=== PATIENT | female | born 1995 | race African-American/Black ===

== ENCOUNTER 2017-03-20 08:00 | Outpatient (CLI) | payer MEDICAID | END 2017-03-20 23:59 | disposition home or self-care (01) | LOC: LAB.R 08:00 | PROVIDERS: ATTEND Obstetrics & Gynecology | DX: Z36 Encounter for antenatal screening of mother (principal) | CPT/HCPCS: 87491; 87591 ==

== ENCOUNTER 2017-03-22 14:17 | Outpatient (CLI) | payer MEDICAID ==
[2017-03-22 14:51] LABS: BILIRUBIN,URINE NEGATIVE (NEGATIVE); PH,URINE 6.5 PH (5.0-7.5)
[2017-03-22 14:56] LABS: BASOPHILS % (AUTO) 0.4 %; EOSINOPHILS # (AUTO) 0.1 10^3/uL (0.0-0.7); EOSINOPHILS % (AUTO) 0.6 %; HCT - HEMATOCRIT 38.5 % (37.0-47.0); HGB - HEMOGLOBIN 13.2 g/dL (12.0-16.0); LYMPHOCYTES # (AUTO) 1.6 10^3/uL (1.5-3.5); LYMPHOCYTES % (AUTO) 16.5 %; MEAN CORPUSCULAR HEMOGLOBIN 27.9 pg (27.0-31.0); MEAN CORPUSCULAR HGB CONC 34.3 g/dL (32.0-36.0); MEAN CORPUSCULAR VOLUME 81.5 fL (81.0-99.0); MEAN PLATELET VOLUME 10.2 fL (7.9-10.8); MONOCYTES # (AUTO) 0.4 10^3/uL (0.0-1.0); MONOCYTES % (AUTO) 4.2 %; NEUTROPHILS # (AUTO) 7.7 10^3/uL (1.5-6.6); NEUTROPHILS % (AUTO) 78.3 %; RED BLOOD COUNT 4.73 10^6/uL (4.20-5.40); RED CELL DISTRIBUTION WIDTH 14.7 % (12.0-15.0); UNCORRECTED WHITE BLOOD COUNT 9.8 x10^3/uL; WHITE BLOOD COUNT 9.8 x10^3/uL (4.8-10.8)
== END 2017-03-22 14:18 | disposition home or self-care (01) ==
LOC: LAB 14:17
PROVIDERS: ATTEND Obstetrics & Gynecology
DX: Z36 Encounter for antenatal screening of mother (principal)
CPT/HCPCS: 36415; 81001; 85025; 86762; 86780; 86850; 86900; 86901; 87340; 87389

== ENCOUNTER 2017-05-12 07:43 | Outpatient (CLI) | payer MEDICAID | END 2017-05-12 07:44 | disposition home or self-care (01) | LOC: DI 07:43 | PROVIDERS: ATTEND Obstetrics & Gynecology | DX: Z53.9 Procedure and treatment not carried out, unspecified reason (principal) ==

== ENCOUNTER 2017-05-19 07:54 | Outpatient (CLI) | payer MEDICAID ==
--- NOTE | 2017-05-19 11:34 | Ultrasound Report ---
OB ULTRASOUND: 05/19/2017 CLINICAL INDICATION: anatomy. TECHNIQUE: Real-time scanning was performed with representative personal service static images obtained. LAST MENSTRUAL PERIOD 12/22/2016 Clinical Age 21 weeks 1 day US Age 21 weeks 1 day EFW Hadlock 410 g EFW% Hadlock --- Heart Rate 140 bpm EDC 09/28/2017 US EDC 09/28/2017 BPD [place] 21 weeks 1 day; Mean mm 50.2 HC [place] 20 weeks 6 days; Mean mm 185.8 AC [place] 21 weeks 3 days; Mean mm 163.5 FL [place]lock 21 weeks 1 day; Mean mm 35.3 Presentation variable Placental Location anterior Cervical Length 4.4 cm Amniotic Fluid 5 cm FINDINGS: There is a single viable intrauterine gestation, in variable position. heart rate is 140 BPM. The placenta is anterior, with a left wrap and a succenturiate posterior lobe seen. There is no evidence of previa. Amniotic fluid volume is subjectively normal. By size, the fetus measures 21 weeks 1 day (21 weeks 2 days by LMP). The following anatomic structures were visualized and appear normal: The intracranial contents, including the ventricles and posterior fossa; the lips and orbits; the spine; the heart, including 4 chamber view and outflow tracts, and diaphragm; the abdominal contents, including the stomach, the bilateral kidneys, and urinary bladder, as well as a normal 3 vessel cord insertion; 4 limbs. No free fluid or adnexal lesion is appreciated. IMPRESSION: SINGLE VIABLE INTRAUTERINE GESTATION, WITH SIZE IN KEEPING WITH LMP DATING. NORMAL ANATOMIC SURVEY. ANTERIOR PLACENTA, WITH A LEFT WRAP AND A POSTERIOR SUCCENTURIATE LOBE. [facility]
== END 2017-05-19 07:55 | disposition home or self-care (01) ==
LOC: DI 07:54
PROVIDERS: ATTEND Obstetrics & Gynecology
DX: Z36 Encounter for antenatal screening of mother (principal); O43.192 Other malformation of placenta, second trimester; Z3A.17 17 weeks gestation of pregnancy
CPT/HCPCS: 76811

== ENCOUNTER 2017-05-21 23:24 | Emergency (ER) | payer MEDICAID ==
[2017-05-21 23:53] VITALS: BP 112/71
[2017-05-22] MEDS ORDERED: DEXAMETHASONE 10 MG/ML VIAL PO STA (01:21)
[2017-05-22] MEDS ORDERED: AZITHROMYCIN 250 MG TABLET PO STA (01:21)
[2017-05-22] MEDS ORDERED: AZITHROMYCIN 250 MG TABLET PO ONE (01:36)
[2017-05-22] MEDS ORDERED: DEXAMETHASONE 10 MG/ML VIAL ONE (01:36)
[2017-05-22] MEDS ORDERED: CLOTRIMAZOLE 1% CREAM 15 GM TUBE TOP STA (01:38)
[2017-05-22] MEDS ORDERED: MICONAZOLE 200 MG VAGINAL SUPP VG STA (02:54)
--- NOTE | 2017-05-22 03:12 | ED Physician Documentation ---
PD HPI FEMALE - Stated complaint Stated Complaint: WOUND ON THIGHS - Chief complaint Chief Complaint: Ext Problem - History obtained from History obtained from: Patient, Family - History of Present Illness Timing - onset: How many days ago (7) Timing - duration: Days (7) Timing - details: Gradual onset, Still present Associated symptoms: Vaginal pain Contributing factors: Similar symptoms before: Has not had sx before Recently seen: Clinic - Additional information Additional information: 21-year-old female is 22 weeks and she has developed some vaginal itching that has been severe and it is enough that she has developed bleeding from where she has been scratching. She did go and see the DISCHARGING MACHINE OPERATOR doctor at the clinic a test was negative for yeast.The patient states that she continues to have itching and the itching is severe enough that she has caused some bleeding. She indicates the area of itching maximally is in the crease of the perivaginal area. Review of Systems Constitutional: denies: Fever Respiratory: denies: Cough GI: denies: Abdominal Pain, Nausea, Vomiting : denies: Dysuria Skin: reports: Rash Musculoskeletal: denies: Neck pain, Back pain, Extremity pain PD PAST MEDICAL HISTORY - Past Surgical History Past Surgical History: No - Allergies Allergies/Adverse Reactions: Allergies Allergy/AdvReac Type Severity Reaction Status Date / Time No Known Drug Allergies Allergy Verified 03/04/16 18:19 - Social History Does the pt smoke?: No Smoking Status: Never smoker Does the pt drink ETOH?: No Does the pt have substance abuse?: No - Immunizations Immunizations are current?: Yes PD ED PE NORMAL - Vitals Vital signs reviewed: Yes (normal ) - General General: No acute distress, Well developed/nourished - HEENT HEENT: Atraumatic - Respiratory Respiratory: No respiratory distress - Female Female : Sizing Machine Tender present (Sarah), Other (There is erythema and weeping to in the fold of the thigh/vagina ) - Back Back: No CVA TTP, No spinal TTP - Derm Derm: Normal color, Warm and dry, No rash - Extremities Extremities: No deformity, No edema Results - Vitals Vitals: Vital Signs - 24 hr 05/21/17 23:51 Temperature 36.6 C Heart Rate 85 Respiratory 16 Rate Blood Pressure 112/71 O2 Saturation 100 Oxygen O2 Source Room air - Labs Labs: Laboratory Tests 05/22/17 03:34 POC Whole Bld Glucose 81 PD MEDICAL DECISION MAKING - ED course Complexity details: considered differential, d/w patient ED course: 21 y/o female with a + "picket fence sign" has scratched hard enough to cause bleeding and treatment is indicated for yeast. FDA currently advises against use of diflucan in and she is instructed to use OTC monistat. We were not able to provide this medication in the hospital. Departure - Departure Disposition: 01 Home, Self Care Clinical Impression: Yeast infection involving the vagina and surrounding area Condition: Stable Instructions: ED Vaginal Infec Fungal Jie Follow-Up: Nory Roberts ARNP [Primary Care Provider] - Malu Denton DO [Provider Admit Priv/Credential] - Comments: Today it appears you are suffering from yeast vaginitis. There is a cream available [id number] for treatment of this that is safe to use during the name of the brand name of the medication is Monistat. The generic name of the medication is Chlortrimazole. This cream is applied directly to the areas where the itching is occurring. Discharge Date/Time: 05/22/17 03:40
== END 2017-05-22 03:40 | disposition home or self-care (01) ==
LOC: ED 23:24
DX: O23.592 Infection of other part of genital tract in pregnancy, second trimester (principal); B37.3 Candidiasis of vulva and vagina; Z3A.22 22 weeks gestation of pregnancy
CPT/HCPCS: 99282; 99283

== ENCOUNTER 2017-07-05 14:17 | Outpatient (CLI) | payer MEDICAID ==
[2017-07-05 18:54] LABS: HCT - HEMATOCRIT 31.3 % (37.0-47.0); HGB - HEMOGLOBIN 10.1 g/dL (12.0-16.0); MEAN CORPUSCULAR HEMOGLOBIN 24.4 pg (27.0-31.0); MEAN CORPUSCULAR HGB CONC 32.2 g/dL (32.0-36.0); MEAN CORPUSCULAR VOLUME 75.7 fL (81.0-99.0); MEAN PLATELET VOLUME 10.1 fL (7.9-10.8); RED BLOOD COUNT 4.13 10^6/uL (4.20-5.40); RED CELL DISTRIBUTION WIDTH 14.6 % (12.0-15.0); WHITE BLOOD COUNT 9.1 x10^3/uL (4.8-10.8)
== END 2017-07-05 14:18 | disposition home or self-care (01) ==
LOC: LAB.N 14:17
PROVIDERS: ATTEND Obstetrics & Gynecology
DX: Z34.90 Encounter for supervision of normal pregnancy, unspecified, unspecified trimester (principal)
CPT/HCPCS: 36415; 82950; 86850

== ENCOUNTER → 2017-07-19 | Outpatient (CLI) | payer MEDICAID | LOC: LAB 08:00 | PROVIDERS: ATTEND Obstetrics & Gynecology | DX: Z53.9 Procedure and treatment not carried out, unspecified reason (principal) ==

== ENCOUNTER 2017-08-29 11:12 | Outpatient (CLI) | payer MEDICAID ==
[2017-08-29 20:05] LABS: HEMOGLOBIN A1C 0.37 g/dL
== END 2017-08-29 11:13 | disposition home or self-care (01) ==
LOC: LAB.N 11:12
PROVIDERS: ATTEND Obstetrics & Gynecology
DX: O99.810 Abnormal glucose complicating pregnancy (principal)
CPT/HCPCS: 36415; 82947; 83036

== ENCOUNTER 2017-09-01 08:00 | Outpatient (CLI) | payer MEDICAID | END 2017-09-01 23:59 | disposition home or self-care (01) | LOC: LAB.R 08:00 | PROVIDERS: ATTEND Obstetrics & Gynecology | DX: Z36.89 Encounter for other specified antenatal screening (principal) | CPT/HCPCS: 87081 ==

== ENCOUNTER 2017-09-24 14:21 | Outpatient (CLI) | payer MEDICAID ==
[2017-09-24 14:40] VITALS: BP 124/85
== END 2017-09-24 16:00 | disposition home or self-care (01) ==
LOC: WFO 14:21 → FBP 14:22 → WFO 16:00
PROVIDERS: ATTEND Obstetrics & Gynecology
DX: O47.1 False labor at or after 37 completed weeks of gestation (principal); Z3A.39 39 weeks gestation of pregnancy
CPT/HCPCS: 99214

== ENCOUNTER 2017-09-28 11:52 | Inpatient (IN) | payer MEDICAID ==
[2017-09-28] MEDS ORDERED: SODIUM CHLORIDE FLUSH 0.9% 10 ML SYRINGE IVP PRN (12:58)
[2017-09-28] MEDS ORDERED: ONDANSETRON 4 MG/2 ML VIAL IVP PRN ×2 (13:01→19:05)
[2017-09-28] MEDS ORDERED: fentaNYL 100 MCG/2 ML VIAL IVP PRN (13:01)
--- NOTE | 2017-09-28 14:30 | HISTORY & PHYSICAL EXAMINATION ---
DATE OF SERVICE: 09/27/2017 Physician: Davdi Gordillo MD DATE OF ADMISSION: 09/27/2017 DIAGNOSES 1. Decreased movement. 2. Uterine contractions, late in stage of labor and augmentation candidate. HISTORY: The patient is a 22-year-old black 3, para 1-0-0-1-1 woman at 40 weeks 0 days gestation based on dates (LMP 12/22/2016, EDC 09/27/2017) and 12-week crown- rump length. Today, she reports decreased movement. She took food, then shook the baby but still fetus was slow to move. She notes that overall the movement presently is less than it has been in the last week. She has no signs or symptoms of preeclampsia, recent illness or fevers and chills. She was seen last evening with similar complaints and contractions. She has had no major problems in her care. Patient reports short labors, generally 5 hours from start to finish. Last delivery was at 39 weeks of a 6 pound, 3 ounce male. ESSENTIAL LABORATORY DATA: Blood type O positive. Antibody screen negative. Rubella immune, RPR negative, chlamydia/GC negative, urinalysis negative, quad screen negative. Glucose challenge test 144. Three-hour GTT normal. GBS negative. PAST MEDICAL HISTORY: Patient reports no chronic disease history or past surgery. ALLERGIES: NO KNOWN DRUG ALLERGIES. MEDICATIONS: vitamins and iron. FAMILY HISTORY: No inheritable diseases,or unexplained mental retardation. SOCIAL HISTORY: Engaged; fiance currently out of state; college student; no drug, tobacco or alcohol use. REVIEW OF SYSTEMS CONSTITUTIONAL: Negative. HEENT: Negative. RESPIRATORY: Negative. CARDIAC: Negative. GASTROINTESTINAL: Negative. GENITOURINARY: Negative. MUSCULOSKELETAL: Negative. NEUROLOGIC: Negative. SKIN: No rashes or skin lesions. ADMISSION LABS: Pending. PHYSICAL EXAMINATION GENERAL: Anxious young woman resting on a hospital [place]. VITAL SIGNS: Temperature 98.2, pulse 105, blood pressure 120/75, respirations 17, pulse oximetry 98 K. HEENT: Supple neck. No thyromegaly. Dentition in good repair. BREASTS: Full. No masses reported. LUNGS: Clear to auscultation. CARDIOVASCULAR: Regular, rapid beat, flow murmur. ABDOMEN: No hepatosplenomegaly. UTERUS: Anticipated weight 7 pounds to 7.5 pounds, vertex presentation. EXTERNAL GENITALIA: No lesions. VAGINA: No blood or discharge. CERVIX: 100% anterior 4 cm dilation, 0 station, bag of water is intact. EXTREMITIES: Nonedematous. Normal motion and strength. NEUROLOGIC: Grossly intact. SKIN: Intact, no lesions noted. ASSESSMENT: This is a term with subtle cervical change from last exam and is probably in prolonged latent phase of labor. By palpating the uterus, the contractions are mild and augmentation will help. The patient desires epidural. PLAN 1. Admit. 2. Rupture membranes and begin Pitocin drip per protocol. 3. Epidural. 4. Anticipate vaginal delivery. TD: 09/28/2017 15:29 GRAEME
[2017-09-28 15:01] LABS: BASOPHILS % (AUTO) 0.4 %; EOSINOPHILS % (AUTO) 0.2 %; HGB - HEMOGLOBIN 8.8 g/dL (12.0-16.0); LYMPHOCYTES # (AUTO) 1.6 10^3/uL (1.5-3.5); LYMPHOCYTES % (AUTO) 16.8 %; MEAN CORPUSCULAR HEMOGLOBIN 19.2 pg (27.0-31.0); MEAN CORPUSCULAR HGB CONC 31.5 g/dL (32.0-36.0); MEAN CORPUSCULAR VOLUME 60.9 fL (81.0-99.0); MEAN PLATELET VOLUME 8.3 fL (7.9-10.8); MONOCYTES # (AUTO) 0.4 10^3/uL (0.0-1.0); NEUTROPHILS # (AUTO) 7.2 10^3/uL (1.5-6.6); NEUTROPHILS % (AUTO) 78.6 %; PLT - PLATELET COUNT 137 10^3/uL (130-450); RED BLOOD COUNT 4.59 10^6/uL (4.20-5.40); RED CELL DISTRIBUTION WIDTH 18.7 % (12.0-15.0); WHITE BLOOD COUNT 9.2 x10^3/uL (4.8-10.8)
[2017-09-28] MEDS: LACTATED RINGERS 1,000 ML IV SCH ×2 (16:05→19:07)
[2017-09-28] MEDS: SODIUM CHLORIDE FLUSH 0.9% 10 ML SYRINGE IVP SCH (16:05)
[2017-09-28] MEDS ORDERED: fent/BUPIV 2 MCG/0.125% 250 ML EP ONE (17:36)
[2017-09-28] MEDS ORDERED: MINERAL OIL LIGHT 10 ML MC ONE (17:37)
[2017-09-28] MEDS ORDERED: LIDOCAINE 1% 50 ML MDV ONE (17:37)
[2017-09-28] MEDS ORDERED: OXYTOCIN/SODIUM CHLORIDE 250 ML IV ONE ×2 (17:38→21:57)
--- NOTE | 2017-09-28 17:40 | PROVIDER PROGRESS NOTE ---
Labor Progress Note - Uterine Monitoring Uterine Monitoring Mode: positive: External toco Contraction Frequency (min/apart): Every 4 Contraction Intensity: positive: Mild Uterine Resting Tone: positive: Soft - Monitoring Monitor Mode: positive: External ultrasound Heart Rate Baseline: 135 Heart Rate Variability: positive: Moderate (6-25 bmp) Accelerations: positive: Present, 15x15 Decelerations: positive: None Strip Review: positive: Category I - Vaginal Exam Dilation (in cm): 4.5 Effacement (%): 60% Station: 0 Cervical Position: Midposition - Labor Progress Note Labor Progress Note/Additional Text: Patient continues to contract but has not made significant forward progress out of the latent phase of labor. Suspect that the strength and frequency of uterine contractions are insufficient. Artificially ruptured membranes at 1730 hours and clear fluid was noted. Patient desires epidural and we will place epidural prior to beginning Pitocin.
[2017-09-28] MEDS ORDERED: OXYTOCIN/SODIUM CHLORIDE 250 ML IV SCH (19:00)
[2017-09-28] MEDS ORDERED: ePHEDrine 50 MG/ML VIAL IVP PRN (19:05)
[2017-09-28] MEDS ORDERED: LACTATED RINGERS 500 ML IV ONE (19:05)
[2017-09-28] MEDS ORDERED: diphenhydrAMINE INJ 50 MG/ML VIAL IVP PRN (19:05)
[2017-09-28] MEDS ORDERED: fent/BUPIV 2 MCG/0.125% 250 ML EP PRN (19:05)
[2017-09-28] MEDS ORDERED: NALBUPHINE 20 MG/ML AMP IVP PRN (19:05)
[2017-09-28] MEDS ORDERED: NALOXONE 0.4 MG/ML VIAL IVP PRN (19:05)
[2017-09-28] MEDS ORDERED: METOCLOPRAMIDE 10 MG/2 ML VIAL IVP PRN (19:05)
--- NOTE | 2017-09-28 20:28 | PROVIDER PROGRESS NOTE ---
Labor Progress Note - Uterine Monitoring Uterine Monitoring Mode: positive: External toco Contraction Frequency (min/apart): 1.5 -2 min Contraction Intensity: positive: Mild to moderate Uterine Resting Tone: positive: Soft - Monitoring Monitor Mode: positive: External ultrasound Heart Rate Baseline: 130 Heart Rate Variability: positive: Moderate (6-25 bmp) Accelerations: positive: Present, 15x15 Decelerations: positive: None Strip Review: positive: Category I - Vaginal Exam Dilation (in cm): 8 Effacement (%): 100% Station: 1 Cervical Position: Anterior - Labor Progress Note Labor Progress Note/Additional Text: Patient is progressing through the active phase of labor. tracing looks normal. However admission hemoglobin is 8.8. Due to possible heavy bleeding with delivery 2 units of packed red blood cells will be typed and crossed in case of hemorrhage
--- NOTE | 2017-09-28 21:25 | PROVIDER PROGRESS NOTE ---
Labor Progress Note - Uterine Monitoring Uterine Monitoring Mode: positive: External toco, Palpation Contraction Frequency (min/apart): Q 2 min Contraction Intensity: positive: Moderate, Moderate to strong Uterine Resting Tone: positive: Soft - Monitoring Monitor Mode: positive: External ultrasound Heart Rate Baseline: 130 Heart Rate Variability: positive: Moderate (6-25 bmp) Accelerations: positive: Present, 10x10 (=/32 wks) Decelerations: positive: Early Strip Review: positive: Category I - Vaginal Exam Dilation (in cm): 10 Effacement (%): 100% Station: 2 Cervical Position: Anterior - Labor Progress Note Labor Progress Note/Additional Text: Patient now feeling the urge to push. Epidural was turned off. Fluid remains clear. 2 units of packed red blood cells are in reserve.
[2017-09-28] MEDS ORDERED: miSOPROStol 200 MCG TABLET ONE (21:55)
--- NOTE | 2017-09-28 21:56 | DELIVERY NOTE ---
Delivery Note - Labor Labor: positive: Spontaneous - Delivery Method Delivery Method: positive: Spontaneous vaginal delivery - Presentation Presentation: positive: Vertex - Nuchal Cord Nuchal Cord: positive: None - Anesthetic Anesthetic Type: Anesthetic: positive: Lidocaine - 1% plain Volume: positive: 5cc - Amniotic Fluid Description Amniotic Fluid Description: positive: Clear (Non-foul) - Episiotomy Type Episiotomy Type: positive: None - Laceration Laceration: positive: 1st degree - Suture Suture Type: positive: Vicryl Suture Size: positive: 3-0 - Delivery Outcome Delivery Outcome: positive: Livebirth - [place]: positive: Suctioned, Bulb syringe, Stimulated, Warmed, [place] used sex: positive: Female - Cord Cord: positive: 2 vessels - Placenta Placenta: positive: Intact, Other (Small auxiliary lobe probably the succenturiate placenta seen on ultrasound) - Estimated Blood Loss Estimated Blood Loss (in cc): 250 - Post Delivery Events Post Delivery Events: positive: No post delivery events (Due to low maternal hemoglobin, 800 mcg of Cytotec given orally to augment IV Pitocin.Uterus firmed well with massage Pitocin and Cytotec. Weight and Apgars pending) - Delivery Comments (Free Text/Narrative) Delivery Comments (Free Text/Narrative): weight 7 lbs. 13 oz.; Apgars 8/9
[2017-09-28] MEDS ORDERED: HYDROCORTISONE/PRAMOXINE 10 GM PR PRN (21:57)
[2017-09-28] MEDS ORDERED: diphenhydrAMINE 25 MG CAPSULE PO PRN (21:57)
[2017-09-28] MEDS ORDERED: WITCH HAZEL/GLYCERIN 1 EACH MED..PAD TOP PRN (21:57)
[2017-09-28] MEDS ORDERED: HYDROcod/ACETAM 5/325 MG TABLET PO PRN (21:57)
[2017-09-28] MEDS ORDERED: LACTATED RINGERS 1,000 ML IV SCH (22:00)
[2017-09-28] MEDS ORDERED: IBUPROFEN 600 MG TABLET PO SCH (22:00)
[2017-09-28] MEDS ORDERED: LORazepam 2 MG/ML VIAL ONE (22:53)
[2017-09-28] MEDS ORDERED: LACTATED RINGERS 1,000 ML IV ONE (23:06)
[2017-09-28 23:10] LABS: BASOPHILS % (AUTO) 0.1 %; EOSINOPHILS % (AUTO) 0.1 %; LYMPHOCYTES # (AUTO) 1.8 10^3/uL (1.5-3.5); LYMPHOCYTES % (AUTO) 13.1 %; MEAN CORPUSCULAR HEMOGLOBIN 18.8 pg (27.0-31.0); MEAN CORPUSCULAR HGB CONC 30.5 g/dL (32.0-36.0); MEAN CORPUSCULAR VOLUME 61.5 fL (81.0-99.0); MEAN PLATELET VOLUME 8.4 fL (7.9-10.8); MONOCYTES # (AUTO) 0.4 10^3/uL (0.0-1.0); MONOCYTES % (AUTO) 2.8 %; NEUTROPHILS # (AUTO) 11.3 10^3/uL (1.5-6.6); NEUTROPHILS % (AUTO) 83.9 %; PLT - PLATELET COUNT 157 10^3/uL (130-450); RED BLOOD COUNT 4.82 10^6/uL (4.20-5.40); RED CELL DISTRIBUTION WIDTH 18.9 % (12.0-15.0); WHITE BLOOD COUNT 13.5 x10^3/uL (4.8-10.8)
[2017-09-28 23:18] LABS: ALBUMIN/GLOBULIN RATIO 0.8 (1.0-2.2); BILIRUBIN,TOTAL 0.4 mg/dL (0.2-1.0); CALCIUM 8.7 mg/dL (8.5-10.3); CREATININE 0.6 mg/dL (0.4-1.0); TOTAL PROTEIN 6.7 g/dL (6.7-8.2)
--- NOTE | 2017-09-28 23:19 | PROVIDER PROGRESS NOTE ---
Subjective - General Admit Date: 09/28/17 Procedure Date: 09/28/17 Post Op Days: 0 Procedure Performed: Normal vaginal delivery over intact perineum - Review of Systems General: positive: Weakness, Malaise (High anxiety, tremulous), Other HEENT: positive: No symptoms Pulmonary: positive: Other (Denies air hunger) Cardiovascular: positive: Palpitations (Denies anginal pain) Gastrointestinal: positive: Diarrhea Genitourinary: positive: Other (Mild to moderate lochia no foul smell, however diarrhea makes it difficult to assess) Musculoskeletal: positive: Other (No calf tenderness Homans sign or cord; Tremors arms legs ut not a siomara seizure) Skin: positive: Pallor (Legs) Neurological: Psychiatric: positive: Anxiety (High anxiety) Objective - Patient Data Weight: Weight 09/26/17 09/27/17 09/28/17 23:59 23:59 23:59 Weight (kg) 63.957 kg Intake & Output: Intake and Output Totals x24h 09/26/17 09/27/17 09/28/17 23:59 23:59 23:59 Intake Total 803.333 Balance 803.333 - Lab Results Lab Results: 09/28/17 23:01 Other Lab Results: Lab Results x24hrs 09/28/17 09/28/17 09/28/17 Range/Units 23:01 14:45 14:45 WBC 13.5 H 9.2 (4.8-10.8) x10^3/uL RBC 4.82 4.59 (4.20-5.40) 10^6/uL Hgb 9.0 L 8.8 L (12.0-16.0) g/dL Hct 29.6 L 27.9 L (37.0-47.0) % MCV 61.5 L 60.9 L (81.0-99.0) fL MCH 18.8 L 19.2 L (27.0-31.0) pg MCHC 30.5 L 31.5 L (32.0-36.0) g/dL RDW 18.9 H 18.7 H (12.0-15.0) % Plt Count 157 137 (130-450) 10^3/uL MPV 8.4 8.3 (7.9-10.8) fL Neut # 7.2 H (1.5-6.6) 10^3/uL Lymph # 1.6 (1.5-3.5) 10^3/uL [place] # 0.4 (0.0-1.0) 10^3/uL Eos # 0.0 (0.0-0.7) 10^3/uL Baso # 0.0 (0.0-0.1) 10^3/uL Absolute Nucleated RBC 0.02 x10^3/uL Nucleated RBC % 0.2 /100WBC Manual Slide Review Indicated Blood Type O POSITIVE Antibody Screen NEGATIVE Crossmatch IS Only See Detail - Current Medications Current Medications: Current Medications Generic Name Dose Route Start Last Admin Trade Name Freq PRN Reason Stop Dose Admin Lactated Ringer's 1,000 mls @ 100 mls/hr 09/28/17 13:00 09/28/17 19:07 Lr IV 100 mls/hr .Q10H TARAN Administration Sodium Chloride 10 ml 09/28/17 14:00 09/28/17 16:05 Normal Saline Flush 0.9% IVP 10 ml Q8HR TARAN Administration Exam - Exam Vital Signs: Vital Signs (72 hours) 09/28/17 12:07 Temperature 98.2 F Heart Rate [ 105 H Monitoring electrodes] Respiratory 17 Rate Blood Pressure 120/75 [Right Brachial artery] O2 Saturation 98 General: Severe distress, Other (Extremely anxious, some difficulty following commands) HEENT: EOMI, Mucous membr. moist/pink Lungs: Clear to auscultation Cardiovascular: Regular rate, Normal S1, Normal S2, Other (Systolic flow murmur murmur due to tachycardia) Abdomen: Soft, No tenderness, Other (Uterus firm and 18 weeks size no tenderness ) Extremities: No edema, No tenderness/swelling, Other (Legs pale and with goosebumps) Skin: No rashes Neurological: Other (Fine tremor both arms and legs) Psych/Mental Status: Other (High anxiety, Oriented to place and person) Assessment/Plan - Assessment/Plan Assessment: Patient has high anxiety, Tachypnea (Respiratory rate above 20) tachycardia, Tremors and elevated blood pressure (155/100) initially. Patient is known to be severely anemic but there is no source of ongoing blood loss. Pulmonary exam unremarkable currently. Given the constellation of symptoms there is a possibility of a pulmonary embolism and needs to be ruled out due to the possible consequences of missed diagnosis. Other possibility is an anxiety attack however my experience with the patientIs that she is not a nervous individual. Anxiety could be provoked by strong uterine contractions due to Cytotec doseBut patient does not complain of abdominal or uterine pain. Plan: Stabilized situation and I will remain at bedside * Ativan 1 mg was given slow IV push. If needed we will repeat * Continue IV fluids and IV line * Stat CBC and comprehensive metabolic panel * Prepare for CT scan of the chest with contrast to rule out potential PE * EKG * If required 2 units of packed red blood cells are still on hold
[2017-09-28] MEDS ORDERED: SODIUM CHLORIDE FLUSH 0.9% 10 ML SYRINGE ONE (23:32)
[2017-09-28] MEDS ORDERED: IOPAMIDOL-300 100 ML VIAL ONE (23:40)
[2017-09-29 00:10] LABS: PLATELET ESTIMATE, MANUAL NORMAL (130-450,000) (NORMAL)
[2017-09-29] MEDS ORDERED: IOPAMIDOL-300 100 ML VIAL IVP ONE (00:29)
--- NOTE | 2017-09-29 00:53 | CT Report ---
EXAM: CT ANGIOGRAM CHEST EXAM DATE: 09/29/2017 12:28 AM. CLINICAL HISTORY: Tachypnea; elevated pulse BP, anxiety. COMPARISON: CT abdomen 03/04/2016. TECHNIQUE: Routine helical imaging was performed through the chest in the pulmonary arterial phase. I V Contrast: Yes. Reconstructions: Coronal 3-D MIP reconstructions.Sagittal and coronal. In accordance with CT protocol optimization, one or more of the following dose reduction techniques w ere utilized for this exam: automated exposure control, adjustment of mA and/or KV based on patient s ize, or use of iterative reconstructive technique. FINDINGS: Pulmonary Arteries: Technically adequate for evaluation through the segmental arteries. No evidence f or acute or chronic pulmonary emboli. Lungs/Pleura: No pneumonia, suspicious nodules, or edema. No effusions or pneumothorax. Mediastinum: No acute aortic syndrome. No cardiac enlargement. No adenopathy. Upper Abdomen: Unremarkable. Other: None. IMPRESSION: Normal pulmonary CT angiogram. No pulmonary emboli. [facility] Referring Provider Line: [phone] SITE ID: [id number]
[2017-09-29] MEDS ORDERED: HYDROcod/ACETAM 5/325 MG TABLET PO PRN (00:55)
[2017-09-29] MEDS: ACETAMINOPHEN 325 MG TABLET PO PRN ×2 (01:04→04:11)
[2017-09-29] MEDS ORDERED: fentaNYL 100 MCG/2 ML VIAL IVP SCH (04:00)
--- NOTE | 2017-09-29 04:44 | PROCEDURE REPORT ---
DATE OF SERVICE: Physician: David Gordillo MD PREDELIVERY DIAGNOSES: 1. Forty week, 0 day gestation. 2. Decreased movement. 3. Uterine contractions in latent phase of labor. 4. Severe anemia in . POSTDELIVERY DIAGNOSES: 1. Forty week, 0 day gestation. 2. Decreased movement. 3. Uterine contractions in latent phase of labor. 4. Severe anemia in . 5. Successful vaginal delivery. PROCEDURE: Manually assisted vaginal delivery over an intact perineum with minor skin laceration repair (Rand). LOSS PREVENTION LEAD: David Gordillo MD, FACOG, FICS ANESTHETIC: Lidocaine local 5 mL and Epidural. ESTIMATED BLOOD LOSS: 250 mL COMPLICATIONS: None. ANESTHESIOLOGIST: Tobias Gunderson, Certified Nurse Hatchery Worker. FINDINGS: At 2141` hours a living female was born weighing 7lb 14.4 0z and scoring Apgars of 9 and 9. There was no trauma or congenital anomalies noted. There was a 3-vessel cord with no cord entanglement. The placenta was delivered spontaneously intact. There was a small 3 x 3 cm lobe adjacent to the main body of the placenta, probably the succenturiate lobe seen on ultrasound. Inspection of the female genital tract finds the cervix and vagina intact. There was a small midline separation of the posterior fourchette skin which was tacked back together uneventfully. TECHNIQUE: The patient smoothly moved through the active phase of labor. She was noted to have severe anemia and therefore, 2 units of packed red blood cells were typed and crossed in case of hemorrhage. She moved to completion around 2130 hours and began to push with good effort. Epidural was discontinued. She smoothly brought the head to the perineum. Atraumatic occurred with the aid of a El maneuver. Shoulders were delivered without difficulty. was placed on the maternal abdomen for warming and stimulation. Cord was doubly clamped and transected. Cord blood sample was taken. After approximately 10-15 minutes, the placenta spontaneously intact. It was inspected to ensure there were no retained fragments. Uterine massage and Pitocin were given. Shortly following 800 mcg of Cytotec was also given. The uterus contracted well and blood loss was low. Mother and grandmother and all bonded well. Father of the baby attended delivery through Skype. Entire family was happy. LABORATORY: Baseline hemoglobin 8.8 with Followup lab in the morning. Blood type O positive, antibody screen negative, rubella immune, RPR negative, GC chlamydia negative, urinalysis negative, quad screen negative, glucose challenge test 09/17/2017 with a normal 3 hour GTT. GBS negative. TD: 09/29/2017 05:43 MTDD
[2017-09-29] MEDS: SODIUM CHLORIDE FLUSH 0.9% 10 ML SYRINGE IVP SCH ×3 (07:10→12:04)
[2017-09-29 08:09] LABS: BASOPHILS # (AUTO) 0.1 10^3/uL (0.0-0.1); BASOPHILS % (AUTO) 0.5 %; EOSINOPHILS % (AUTO) 0.1 %; HGB - HEMOGLOBIN 7.4 g/dL (12.0-16.0); LYMPHOCYTES # (AUTO) 1.6 10^3/uL (1.5-3.5); LYMPHOCYTES % (AUTO) 13.1 %; MEAN CORPUSCULAR HGB CONC 33.2 g/dL (32.0-36.0); MEAN CORPUSCULAR VOLUME 57.1 fL (81.0-99.0); MEAN PLATELET VOLUME 8.2 fL (7.9-10.8); MONOCYTES # (AUTO) 0.7 10^3/uL (0.0-1.0); MONOCYTES % (AUTO) 5.6 %; NEUTROPHILS # (AUTO) 9.6 10^3/uL (1.5-6.6); NEUTROPHILS % (AUTO) 80.7 %; PLT - PLATELET COUNT 107 10^3/uL (130-450); RED BLOOD COUNT 3.92 10^6/uL (4.20-5.40); WHITE BLOOD COUNT 11.9 x10^3/uL (4.8-10.8)
[2017-09-29] MEDS ORDERED: IBUPROFEN 100 MG/5 ML UDC PO SCH (09:00)
[2017-09-29] MEDS ORDERED: ACETAMINOPHEN 160 MG/5 ML SUSP UDC PO PRN ×2 (09:06→09:17)
--- NOTE | 2017-09-29 10:31 | PROVIDER PROGRESS NOTE ---
Subjective - Prog Note Date Prog Note Date: 09/29/17 Prog Note Time: 10:28 - Subjective Pt reports feeling: Improved (Pt had a difficult post course. Following delivery she had episond of what appered to be on anxoiuity attach. she also experienced Gi symptoms from her cytotec. She is feeling tired to day. She requests liquid medication.) Objective - Vital Signs/Intake & Output Vital Signs: Vital Signs x48h Temp Pulse Resp BP Pulse Ox 09/29/17 08:30 36.6 C 104 H 16 103/68 98 09/29/17 03:35 36.8 C 95 16 104/61 95 Intake & Output: Intake & Output 09/26/17 09/27/17 09/28/17 09/29/17 23:59 23:59 23:59 23:59 Intake Total 519.235 6888 Output Total 80 350 Balance 245.091 0835 - Objective General Appearance: positive: No acute distress, Alert (Fatigued) Respiratory: positive: Chest non-tender, No respiratory distress, Breath sounds nml Cardiovascular: positive: Regular rate & rhythm, No murmur, No gallop Abdomen: positive: Non-tender, No organomegaly, Mass (uterus is 2 cm above.) Extremities: negative: Calf tenderness, Nuris's sign/cords - Lab Results Fish Bones: 09/29/17 08:00 09/28/17 23:01 Other Labs: Lab Results x24hrs 09/29/17 09/28/17 09/28/17 Range/Units 08:00 23:01 23:01 WBC 11.9 H 13.5 H (4.8-10.8) x10^3/uL RBC 3.92 L 4.82 (4.20-5.40) 10^6/uL Hgb 7.4 L 9.0 L (12.0-16.0) g/dL Hct 22.4 L 29.6 L (37.0-47.0) % MCV 57.1 L 61.5 L (81.0-99.0) fL MCH 19.0 L 18.8 L (27.0-31.0) pg MCHC 33.2 30.5 L (32.0-36.0) g/dL RDW 19.0 H 18.9 H (12.0-15.0) % Plt Count 107 L 157 (130-450) 10^3/uL MPV 8.2 8.4 (7.9-10.8) fL Neut # 9.6 H 11.3 H (1.5-6.6) 10^3/uL Lymph # 1.6 1.8 (1.5-3.5) 10^3/uL [place] # 0.7 0.4 (0.0-1.0) 10^3/uL Eos # 0.0 0.0 (0.0-0.7) 10^3/uL Baso # 0.1 0.0 (0.0-0.1) 10^3/uL Absolute Nucleated RBC 0.01 0.01 x10^3/uL Nucleated RBC % 0.1 0.1 /100WBC Manual Slide Review Indicated Platelet Estimate NORMAL (130-450,000) (NORMAL) RBC Morph Micro Appear 1+ OVALOCYTES (NORMAL) Sodium 133 L (135-145) mmol/L Potassium 4.4 (3.5-5.0) mmol/L Chloride 101 (101-111) mmol/L Carbon Dioxide 19 L (21-32) mmol/L Anion Gap 13.0 (6-13) BUN 7 (6-20) mg/dL Creatinine 0.6 (0.4-1.0) mg/dL Estimated GFR (MDRD) 149 (>89) Glucose 79 (70-100) mg/dL Calcium 8.7 (8.5-10.3) mg/dL Total Bilirubin 0.4 (0.2-1.0) mg/dL AST 26 (10-42) IU/L ALT 11 (10-60) IU/L Alkaline Phosphatase 239 H (42-121) IU/L Total Protein 6.7 (6.7-8.2) g/dL Albumin 3.0 L (3.2-5.5) g/dL Globulin 3.7 (2.1-4.2) g/dL Albumin/Globulin Ratio 0.8 L (1.0-2.2) Blood Type Antibody Screen Crossmatch IS Only 09/28/17 09/28/17 Range/Units 14:45 14:45 WBC 9.2 (4.8-10.8) x10^3/uL RBC 4.59 (4.20-5.40) 10^6/uL Hgb 8.8 L (12.0-16.0) g/dL Hct 27.9 L (37.0-47.0) % MCV 60.9 L (81.0-99.0) fL MCH 19.2 L (27.0-31.0) pg MCHC 31.5 L (32.0-36.0) g/dL RDW 18.7 H (12.0-15.0) % Plt Count 137 (130-450) 10^3/uL MPV 8.3 (7.9-10.8) fL Neut # 7.2 H (1.5-6.6) 10^3/uL Lymph # 1.6 (1.5-3.5) 10^3/uL [place] # 0.4 (0.0-1.0) 10^3/uL Eos # 0.0 (0.0-0.7) 10^3/uL Baso # 0.0 (0.0-0.1) 10^3/uL Absolute Nucleated RBC 0.02 x10^3/uL Nucleated RBC % 0.2 /100WBC Manual Slide Review Platelet Estimate (NORMAL) RBC Morph Micro Appear (NORMAL) Sodium (135-145) mmol/L Potassium (3.5-5.0) mmol/L Chloride (101-111) mmol/L Carbon Dioxide (21-32) mmol/L Anion Gap (6-13) BUN (6-20) mg/dL Creatinine (0.4-1.0) mg/dL Estimated GFR (MDRD) (>89) Glucose (70-100) mg/dL Calcium (8.5-10.3) mg/dL Total Bilirubin (0.2-1.0) mg/dL AST (10-42) IU/L ALT (10-60) IU/L Alkaline Phosphatase (42-121) IU/L Total Protein (6.7-8.2) g/dL Albumin (3.2-5.5) g/dL Globulin (2.1-4.2) g/dL Albumin/Globulin Ratio (1.0-2.2) Blood Type O POSITIVE Antibody Screen NEGATIVE Crossmatch IS Only See Detail - Diagnostic Imaging Diagnostic Imaging Results: positive: Prelim report reviewed (negative CT for PE ) Assessment/Plan - Problem List (1) (spontaneous vaginal delivery) Impression: Recovering well. Change to liquid meds. (2) Anemia affecting Impression: pt appears stable Draw iron studies and give 200 mg Iron IV
[2017-09-29] MEDS: HYDROcodone/ACETAM 7.5 MG/325 MG 15 ML UDC PO PRN ×2 (10:33→16:25)
[2017-09-29] MEDS: DOCUSATE SODIUM 100 MG CAPSULE PO SCH (10:35)
[2017-09-29] MEDS: IBUPROFEN 100 MG/5 ML UDC PO SCH ×2 (10:39→16:26)
[2017-09-29 11:16] LABS: % IRON SATURATION 7 % (20-50); IRON 44 ug/dL (28-170); TOTAL IRON BINDING CAPACITY 602 ug/dL (250-450); TRANSFERRIN 430 mg/dL (192-382)
[2017-09-29] MEDS ORDERED: IRON SUCROSE 200 MG in SODIUM CHLORIDE 0.9% 100ML 100 ML IV SCH (11:30)
[2017-09-29] MEDS ORDERED: SODIUM CHLORIDE FLUSH 0.9% 10 ML SYRINGE ONE (12:09)
[2017-09-30] MEDS: DOCUSATE SODIUM 100 MG CAPSULE PO SCH ×2 (00:25→12:26)
[2017-09-30] MEDS: IBUPROFEN 100 MG/5 ML UDC PO SCH ×4 (00:25→18:31)
--- NOTE | 2017-09-30 10:56 | PROVIDER PROGRESS NOTE ---
Subjective - Prog Note Date Prog Note Date: 09/30/17 Prog Note Time: 10:54 - Subjective Pt reports feeling: Improved (Baseline pain 0/10 2/10 with breast feeding. breast feeding Milk in.) Objective - Vital Signs/Intake & Output Reviewed Vital Signs: Yes Vital Signs: Vital Signs x48h Temp Pulse Resp BP Pulse Ox 09/30/17 09:49 36.7 C 112 H 16 114/73 100 09/30/17 04:05 36.5 C 83 20 99/59 L 100 Intake & Output: Intake & Output 09/27/17 09/28/17 09/29/17 09/30/17 23:59 23:59 23:59 23:59 Intake Total 363.889 8519 Output Total 80 350 Balance 756.738 4599 - Objective General Appearance: positive: No acute distress, Alert Respiratory: positive: Chest non-tender, No respiratory distress, Breath sounds nml Cardiovascular: positive: Regular rate & rhythm, No murmur, No gallop Abdomen: positive: Non-tender, Mass (u-3) Extremities: negative: Calf tenderness, Nuris's sign/cords Neurologic/Psychiatric: positive: Oriented x3 - Lab Results Fish Bones: 09/29/17 08:00 09/28/17 23:01 Other Labs: Lab Results x24hrs 09/29/17 Range/Units 10:32 Iron 44 (28-170) ug/dL TIBC 602 H (250-450) ug/dL % Saturation 7 L (20-50) % Transferrin 430 H (192-382) mg/dL Assessment/Plan - Problem List (1) (spontaneous vaginal delivery) Impression: Pt is recovering well lociea improving with time. Discussed breast feeding, contraception, mastitis, bleeding Discharge meds: Motrin 600 home supply NorQD start 2 weeks post Iron 324 qd Colace 200 bid RTC 6 weeks (2) Anemia affecting Impression: Pt has an iron deficient anemia. Rx with IV iron yesterday will repeat on week times 2 Qualifiers: Trimester: third trimester Qualified Code(s): O99.013 - Anemia complicating , third trimester
[2017-09-30 18:30] VITALS: BP 112/71
--- NOTE | 2017-09-30 21:42 | Labor Flowsheet ---
Labor Flowsheet Datetime Report Generated by CPN: 09/30/2017 21:42 Datetime: 09/30/2017 18:25 VITAL SIGNS NBP Sys/Talisha/Mean (mmHg): 112 : 71 : 81 Pulse: 110 COMMUNICATION LaborFlag: Labor Datetime: 09/30/2017 09:40 SpO2 (%): 100 Datetime: 09/29/2017 02:00 Temperature (C): 36.8 Datetime: 09/29/2017 00:25 Respirations: 16 Vital Sign Comments: Dr. Rand notified of temp Datetime: 09/28/2017 21:40 FHR Baseline Rate : 130 FHR Baseline Changes: No Baseline Change Variability: Moderate 6-25 bpm Accelerations: None Decelerations: Early Category: Category II Comments: pushing Datetime: 09/28/2017 21:35 ASSESSMENT A Monitor Mode: External US Oxygen Method: Room Air Datetime: 09/28/2017 21:18 VAGINAL EXAM Dilatation (cm): 10.0 Effacement (%): 100 Station: 3 Exam by: Dr. Gordillo Datetime: 09/28/2017 21:15 UTERINE ACTIVITY Monitor Mode: External Frequency (min): 2-4 Quality: Strong Duration (sec): 60-120 Pattern: Normal: <= 5 Contractions in 10 Minutes Resting Tone (Palpate): Relaxed Datetime: 09/28/2017 20:47 PATIENT CARE IV/Blood Work: IV Bolus Started Datetime: 09/28/2017 20:43 Vaginal Bleeding: Normal Show Datetime: 09/28/2017 20:30 PAIN Pain Scale: 0 Pain Presence: None/Denies Pain Type: N/A Pain Relief Measures: Epidural Given Datetime: 09/28/2017 20:22 Patient Position/Activity: Right Tilt Datetime: 09/28/2017 19:15 Pain Coping: Sleeping Datetime: 09/28/2017 18:33 Pain Assessment Comments: pain relieved with epidural Datetime: 09/28/2017 18:06 ANESTHESIA Anesthesia Plans: Epidural Epidural Procedure Other: Pump Started Datetime: 09/28/2017 17:57 Epidural Procedure: Loading Dose Datetime: 09/28/2017 17:45 Patient Care Comments: sitting on side of bed for epidural Datetime: 09/28/2017 17:38 PROCEDURE TIME OUT Procedure Verify: Correct Patient Identity; Accurate Procedure Consent Form; Agreement on Procedure to be Done; Correct Patient Position; Safety Precautions Based on Patient History or Medication Use Epidural Positioning: Sitting Anesthesia Comments: aube here Datetime: 09/28/2017 17:20 Membrane Status: Ruptured Membranes Rupture Method: Artificial Amniotic Fluid Color: Clear Amniotic Fluid Amount: Small Amniotic Fluid Odor: Normal Cervix, Consistency: Soft Cervix, Position: Anterior Datetime: 09/28/2017 16:46 Pain Location: Abdomen; Back Comfort Measures: Family Support Datetime: 09/28/2017 16:17 Stage of : Labor Datetime: 09/28/2017 16:15 Monitor Interventions for FHR: Ultrasound Adjusted
--- NOTE | 2017-10-25 17:08 | DISCHARGE SUMMARY ---
Physician: David Allen MD DATE OF ADMISSION: 09/28/2017 DATE OF DISCHARGE: 09/30/2017 ADMITTING DIAGNOSES: 1. Term cyesis. 2. Favorable cervix. 3. Decreased motion. 4. Anemia. DISCHARGE DIAGNOSES: 1. Term cyesis. 2. Favorable cervix. 3. Decreased motion. 4. Anemia. PROCEDURES: 1. Pitocin augmentation. 2. Epidural. 3. Assisted vaginal delivery. PRESENTING HISTORY: The patient is a 22-year-old black 3, para 1-0-0-1-1, who at 40 weeks of age based on 12-week ultrasound and last menstrual period presented with decreased motion. It was decided to go ahead and induce her at this time. She had no signs or symptoms of preeclampsia. Her was, however, complicated with anemia. Her blood type is known to be O positive. Her 50 gram Glucola was 144, but she had a normal 3 hour GTT. GBS was negative. LABORATORIES: CBC on admission showed a hemoglobin 8.8, white count was 9.2, platelets were noted to be 137. That evening her hemoglobin was 9.0, blood fell to 7.4 on the prior to discharge. She was also noted the MCV was 60.9 and fell to 57.1, MCH was also noted to be markedly low at 19.0. Her iron binding capacity was 602, saturation was 7, transferrin was 430. HOSPITAL COURSE: The patient was admitted to Labor and Delivery. She received Pitocin for augmentation of labor. She had an epidural placed. She delivered a live female with Apgars of 8 and 9, weighing 7 pounds 13 ounces. , she proceeded well. She had her iron studies drawn and she was started on IV iron for replacement. She was discharged to home with instructions to followup in the clinic at 1 and 6 weeks. DISCHARGE MEDICATIONS: Motrin. TD: 10/25/2017 17:07
== END 2017-09-30 21:37 | disposition home or self-care (01) | DRG 775 ==
LOC: WFO 11:52 → FBP 11:55 → WFO 12:57 → FBP 12:58
PROVIDERS: ADMIT Obstetrics & Gynecology; ATTEND Obstetrics & Gynecology
PROC: 10E0XZZ Delivery of Products of Conception, External Approach (ICD-10-PCS; principal; 2017-09-28)
PROC: 0HQ9XZZ Repair Perineum Skin, External Approach (ICD-10-PCS; 2017-09-28)
PROC: 10907ZC Drainage of Amniotic Fluid, Therapeutic from Products of Conception, Via Natural or Artificial Opening (ICD-10-PCS; 2017-09-28)
DX: O36.8130 Decreased fetal movements, third trimester, not applicable or unspecified (principal); O63.0 Prolonged first stage (of labor); O99.02 Anemia complicating childbirth; D64.9 Anemia, unspecified; O70.0 First degree perineal laceration during delivery; O99.345 Other mental disorders complicating the puerperium; F41.9 Anxiety disorder, unspecified; Z3A.40 40 weeks gestation of pregnancy; Z37.0 Single live birth
CPT/HCPCS: 36415; 51701; 71275; 80053; 83540; 84466; 85025; 86850; 86900; 86901; 86920; 99214

== ENCOUNTER 2017-12-08 19:09 | Emergency (ER) | payer MEDICAID ==
[2017-12-08] MEDS ORDERED: SODIUM CHLORIDE 0.9% 1,000 ML IV ONE (20:19)
[2017-12-08] MEDS ORDERED: KETOROLAC 30 MG/ML VIAL IVP STA (20:19)
[2017-12-08] MEDS ORDERED: LOPERAMIDE 2 MG CAPSULE PO STA (20:19)
[2017-12-08] MEDS ORDERED: ONDANSETRON 4 MG/2 ML VIAL IVP STA (20:19)
[2017-12-08 20:20] LABS: BASOPHILS % (AUTO) 0.3 %; EOSINOPHILS % (AUTO) 0.1 %; HGB - HEMOGLOBIN 12.7 g/dL (12.0-16.0); LYMPHOCYTES # (AUTO) 0.6 10^3/uL (1.5-3.5); LYMPHOCYTES % (AUTO) 4.4 %; MEAN CORPUSCULAR HGB CONC 30.9 g/dL (32.0-36.0); MEAN PLATELET VOLUME 8.6 fL (7.9-10.8); MONOCYTES # (AUTO) 0.4 10^3/uL (0.0-1.0); MONOCYTES % (AUTO) 3.6 %; NEUTROPHILS # (AUTO) 11.4 10^3/uL (1.5-6.6); NEUTROPHILS % (AUTO) 91.6 %; PLT - PLATELET COUNT 216 10^3/uL (130-450); RED BLOOD COUNT 5.77 10^6/uL (4.20-5.40); RED CELL DISTRIBUTION WIDTH 22.2 % (12.0-15.0); WHITE BLOOD COUNT 12.5 x10^3/uL (4.8-10.8)
--- NOTE | 2017-12-08 20:20 | ED Physician Documentation ---
PD HPI ABD PAIN - Stated complaint Stated Complaint: VOMITING, DIARRHEA - Chief complaint Chief Complaint: Abd Pain - History obtained from History obtained from: Patient - History of Present Illness Timing - onset: Other (She developed diffuse and upper abdominal pain today around 3:00 followed quickly by vomiting and diarrhea without blood from either end. She has had chills but no measured fevers. She has had her appendix out remotely. She doubts possibility of .) Review of Systems Constitutional: denies: Fever, Chills Cardiac: reports: Reviewed and negative Respiratory: reports: Reviewed and negative GI: reports: Abdominal Pain, Nausea, Vomiting, Diarrhea : denies: Dysuria, Frequency PD PAST MEDICAL HISTORY - Past Medical History Past Medical History: Yes Cardiovascular: None Respiratory: None Neuro: None Endocrine/Autoimmune: None GI: Hemorrhoids : None HEENT: None Psych: None Derm: None - Past Surgical History Past Surgical History: No General: Appendectomy - Present Medications Home Medications: Ambulatory Orders Medication Instructions Recorded Confirmed Loperamide [Imodium] 2 mg PO QID PRN #10 capsule 12/08/17 Ondansetron HCl [Zofran] 4 mg PO Q6H PRN #10 tablet 12/08/17 - Allergies Allergies/Adverse Reactions: Allergies Allergy/AdvReac Type Severity Reaction Status Date / Time No Known Drug Allergies Allergy Verified 12/08/17 19:15 - Social History Does the pt smoke?: No Smoking Status: Never smoker Does the pt drink ETOH?: No Does the pt have substance abuse?: No - Immunizations Immunizations are current?: Yes PD ED PE NORMAL - Vitals Vital signs reviewed: Yes - General General: Alert and oriented X 3, No acute distress - HEENT HEENT: PERRL, EOMI - Neck Neck: Supple, no meningeal sign, No bony TTP - Cardiac Cardiac: RRR, No murmur - Respiratory Respiratory: No respiratory distress, Clear bilaterally - Abdomen Abdomen: Normal bowel sounds, Soft, Non tender - Derm Derm: Normal color, Warm and dry - Neuro Neuro: Alert and oriented X 3, Normal speech - Psych Psych: Normal mood, Normal affect Results - Vitals Vitals: Vital Signs - 24 hr 12/08/17 12/08/17 19:13 21:04 Temperature 36.7 C 36.7 C Heart Rate 102 H 80 Respiratory 18 20 Rate Blood Pressure 127/80 106/70 O2 Saturation 97 100 Oxygen O2 Source Room air - Labs Labs: Laboratory Tests 12/08/17 12/08/17 12/08/17 20:02 20:02 21:10 WBC 12.5 H RBC 5.77 H Hgb 12.7 Hct 41.0 MCV 71.0 L MCH 22.0 L MCHC 30.9 L RDW 22.2 H Plt Count 216 MPV 8.6 Neut # 11.4 H Lymph # 0.6 L [place] # 0.4 Eos # 0.0 Baso # 0.0 Absolute Nucleated RBC 0.01 Nucleated RBC % 0.1 Sodium 137 Potassium 3.9 Chloride 104 Carbon Dioxide 23 Anion Gap 10.0 BUN 14 Creatinine 0.7 Estimated GFR (MDRD) 125 Glucose 130 H Calcium 9.2 Total Bilirubin 0.3 AST 32 ALT 34 Alkaline Phosphatase 94 Total Protein 9.3 H Albumin 4.9 Globulin 4.4 H Albumin/Globulin Ratio 1.1 Lipase 15 L Urine Color YELLOW Urine Clarity CLOUDY Urine pH 5.5 Ur Specific [place] >=1.030 H Urine Protein 30 H Urine Glucose (UA) NEGATIVE Urine Ketones TRACE Urine Occult Blood MODERATE H Urine Nitrite NEGATIVE Urine Bilirubin NEGATIVE Urine Urobilinogen 0.2 (NORMAL) Ur Leukocyte Esterase NEGATIVE Urine RBC 6-10 H Urine WBC 0-3 Ur Squamous Epith Cells FEW Squamous Amorphous Sediment Marked Urine Bacteria Few Urine Mucus Few Strands Ur Microscopic Review INDICATED Urine Culture Comments NOT INDICATED Urine HCG, Qual NEGATIVE PD MEDICAL DECISION MAKING - ED course ED course: 22-year-old woman with clinical gastroenteritis, nontender abdomen. She was administered IV fluids, Zofran, Imodium. On recheck she was feeling much better still with some cramping she was followed by dicyclomine but still nontender. Passed an oral challenge. Departure - Departure Disposition: Home, Self Care Clinical Impression: Gastroenteritis Condition: Good Record reviewed to determine appropriate education?: Yes Instructions: ED Gastroenteritis Viral Prescriptions: Loperamide [Imodium] 2 mg PO QID PRN #10 capsule PRN Reason: Diarrhea Ondansetron HCl [Zofran] 4 mg PO Q6H PRN #10 tablet PRN Reason: Nausea / Vomiting Comments: You should be much better by mid morning tomorrow, return midmorning tomorrow if not much better.
[2017-12-08 20:21] LABS: ALBUMIN 4.9 g/dL (3.2-5.5); ALBUMIN/GLOBULIN RATIO 1.1 (1.0-2.2); BILIRUBIN,TOTAL 0.3 mg/dL (0.2-1.0); CALCIUM 9.2 mg/dL (8.5-10.3); CREATININE 0.7 mg/dL (0.4-1.0); TOTAL PROTEIN 9.3 g/dL (6.7-8.2)
[2017-12-08 21:22] LABS: GLUCOSE, URINE (UA) NEGATIVE (NEGATIVE); KETONES,URINE (UA) TRACE mg/dL (NEGATIVE); LEUKOCYTE ESTERASE, URINE NEGATIVE (NEGATIVE); NITRITE,URINE NEGATIVE (NEGATIVE); OCCULT BLOOD,URINE MODERATE (NEGATIVE); PH,URINE 5.5 PH (5.0-7.5); PROTEIN,URINE 30 mg/dL (NEGATIVE); UROBILINOGEN,URINE 0.2 (NORMAL) E.U./dL (NORMAL)
[2017-12-08 21:27] LABS: BILIRUBIN,URINE NEGATIVE (NEGATIVE); CLARITY,URINE CLOUDY (CLEAR); ICTOTEST,URINE NEGATIVE
[2017-12-08 21:28] LABS: HCG UR QUAL NEGATIVE
[2017-12-08] MEDS ORDERED: DICYCLOMINE 10 MG CAPSULE PO STA (21:29)
[2017-12-08] MEDS ORDERED: ONDANSETRON ODT 4 MG Prepack 2 TL STA (21:29)
[2017-12-08 21:37] LABS: AMORPHOUS SEDIMENT,UR Marked /LPF; BACTERIA,URINE Few /HPF (None Seen); MUCUS,URINE Few Strands; SQUAMOUS EPITHELIAL CELL,UR FEW Squamous (<= Few)
[2017-12-08 21:59] VITALS: BP 104/61
== END 2017-12-08 21:59 | disposition home or self-care (01) ==
LOC: ED 19:09
DX: K52.9 Noninfective gastroenteritis and colitis, unspecified (principal)
CPT/HCPCS: 36415; 80053; 81001; 81025; 83690; 85025; 96361; 96374; 96375; 99283; 99284; A9270; 81003; 87086

== ENCOUNTER 2018-02-01 14:19 | Outpatient (CLI) | payer MEDICAID ==
[2018-02-01 19:07] LABS: BASOPHILS % (AUTO) 0.6 %; EOSINOPHILS # (AUTO) 0.1 10^3/uL (0.0-0.7); EOSINOPHILS % (AUTO) 0.8 %; HGB - HEMOGLOBIN 11.5 g/dL (12.0-16.0); LYMPHOCYTES # (AUTO) 2.7 10^3/uL (1.5-3.5); MEAN CORPUSCULAR HEMOGLOBIN 22.7 pg (27.0-31.0); MEAN CORPUSCULAR HGB CONC 31.7 g/dL (32.0-36.0); MEAN CORPUSCULAR VOLUME 71.7 fL (81.0-99.0); MEAN PLATELET VOLUME 9.8 fL (7.9-10.8); MONOCYTES # (AUTO) 0.3 10^3/uL (0.0-1.0); MONOCYTES % (AUTO) 3.9 %; NEUTROPHILS # (AUTO) 3.5 10^3/uL (1.5-6.6); NEUTROPHILS % (AUTO) 53.7 %; PLT - PLATELET COUNT 255 10^3/uL (130-450); RED BLOOD COUNT 5.05 10^6/uL (4.20-5.40); RED CELL DISTRIBUTION WIDTH 16.5 % (12.0-15.0); WHITE BLOOD COUNT 6.6 x10^3/uL (4.8-10.8)
== END 2018-02-01 14:20 ==
LOC: LAB.N 14:19
PROVIDERS: ATTEND Obstetrics & Gynecology
DX: D64.9 Anemia, unspecified (principal)
CPT/HCPCS: 36415; 85025